=== PATIENT | female | born 1960 | race Asian ===

== ENCOUNTER 2020-11-07 22:46 | Inpatient (IN) | payer OTHER, SELFPAY ==
[~2020-11-07] VITALS: Ht 160 cm; Wt 58.2 kg
[2020-11-07] MEDS ORDERED: ACETAMINOPHEN 500 MG TABLET PO ONE (23:30)
[2020-11-07 23:37] LABS: COVID AG,FIA SOURCE NASOPHARYNGEAL
[2020-11-07 23:42] LABS: BASOPHILS % (AUTO) 0.3 % (0.0-2.0); EOSINOPHILS % (AUTO) 0 % (1.0-6.0); HEMATOCRIT 40.5 % (36-46); HEMOGLOBIN 13.5 g/dL (12.0-16.0); LYMPHOCYTES # (AUTO) 1.3 K/uL (1.0-4.8); LYMPHOCYTES % (AUTO) 24.3 % (22.0-44.0); MEAN CORPUSCULAR HEMOGLOBIN 28.4 pg (26.0-34.0); MEAN CORPUSCULAR HGB CONC 33.2 G/dL (31.0-37.0); MEAN CORPUSCULAR VOLUME 86 fL (80-100); MONOCYTES # (AUTO) 0.4 K/uL (0.1-1.0); MONOCYTES % (AUTO) 7.3 % (2.0-9.0); NEUTROPHILS # (AUTO) 3.6 K/uL (1.8-7.7); NEUTROPHILS % (AUTO) 68.1 % (40.0-70.0); PLATELET COUNT (AUTO) 167 K/uL (150-450); RED BLOOD CELL COUNT(AUTO) 4.74 MIL/uL (4.00-5.20); RED CELL DISTRIBUTION WIDTH 12.7 % (11.5-14.5)
[2020-11-07 23:56] LABS: ANION GAP 9 mmol/L (8-16); CALCIUM, TOTAL 8.1 mg/dL (8.8-10.5); CARBON DIOXIDE 27 mmol/L (22-29); CHLORIDE 98 mmol/L (98-107); CREATININE 0.92 mg/dL (0.60-1.30); GLOMERULAR FILTR. RATE CALC > 60 mL/min (>60); GLUCOSE,RANDOM 134 mg/dL (70-110); POTASSIUM 3.5 mmol/L (3.5-5.1); SODIUM SERUM 134 mmol/L (136-145); UREA NITROGEN, BLOOD 14 mg/dL (7-18)
[2020-11-08] MEDS ORDERED: 0.9% SODIUM CHLORIDE 10 ML SYRINGE IVP PRN
[2020-11-08] MEDS ORDERED: ACETAMINOPHEN 325 MG TABLET PO PRN
[2020-11-08 00:09] LABS: LACTIC ACID 1.1 mmol/L (0.4-2.0)
[2020-11-08] MEDS: OXYGEN THERAPY IH SCH ×3 (00:11→20:16)
[2020-11-08 00:15] LABS: D-DIMER 0.88 mg/L FEU (0.00-0.50)
[2020-11-08 00:21] LABS: ALANINE AMINOTRANSFERASE 42 U/L (12-78); ALBUMIN 3.4 g/dL (3.4-5.0); ALKALINE PHOSPHATASE 56 U/L (46-116); ASPARTATE AMINOTRANSFERASE 42 U/L (15-37); BILIRUBIN,TOTAL 0.6 mg/dL (0.1-1.0); CREATINE KINASE, TOTAL ONLY 85 U/L (26-192); FERRITIN 982 ng/mL (8-252); LIPASE 264 U/L (73-393); TOTAL PROTEIN, SERUM 7.8 g/dL (6.4-8.2)
[2020-11-08 00:26] LABS: B-TYPE NATRIURETIC PEPTIDE < 5 pg/mL (0-100)
[2020-11-08] MEDS ORDERED: DEXAMETHASONE SOD PHOS 4 MG/ML VIAL IVP ONE (00:30)
[2020-11-08] MEDS ORDERED: REMDESIVIR 200 MG in SODIUM CHLORIDE 0.9% 250 ML IV ONE (00:30)
[2020-11-08 00:41] LABS: INR 0.9 (0.9-1.1)
[2020-11-08 01:01] LABS: C-REACTIVE PROTEIN QUANT 2.72 mg/dL (0.00-0.30); LACTATE DEHYDROGENASE 281 U/L (81-234)
[2020-11-08] MEDS ORDERED: CHOLECALCIFEROL (VIT D3) 5,000 [125 MCG] UNITS CAPSULE PO ONE ×2 (01:15→09:00)
[2020-11-08 05:38] VITALS: BP 147/88
[2020-11-08 07:58] VITALS: BP 102/57
[2020-11-08] MEDS ORDERED: ZINC SULFATE 220 MG CAPSULE PO ONE (09:00)
[2020-11-08] MEDS ORDERED: ASCORBIC ACID 500 MG TABLET PO ONE (09:00)
[2020-11-08] MEDS: GuaiFENesin/D-METHORPHAN [SUGAR-FREE] 200-20MG/10 ML SYRUP UDCUP PO PRN (10:51)
[2020-11-08 12:50] VITALS: BP 103/64
[2020-11-08] MEDS ORDERED: SODIUM CHLORIDE 0.9% 1,000 ML IV ONE (14:00)
[2020-11-08] MEDS ORDERED: BISACODYL 10 MG RECTAL RECTAL SUPPOSITORY PR PRN (14:00)
[2020-11-08] MEDS ORDERED: MAGNESIUM HYDROXIDE SUSPENSION 30 ML UDCUP PO PRN (14:00)
[2020-11-08] MEDS ORDERED: ONDANSETRON HCL 4 MG/2 ML VIAL IVP PRN ×2 (14:00)
[2020-11-08] MEDS ORDERED: HYDROCODONE/ACETAMINOPHEN 5-325 MG TABLET PO PRN (14:00)
[2020-11-08] MEDS: ASCORBIC ACID 500 MG TABLET PO SCH ×2 (14:00→20:17)
[2020-11-08] MEDS ORDERED: MORPHINE SULFATE 2 MG/ML SYRINGE IVP PRN (14:00)
[2020-11-08] MEDS ORDERED: *CLINICAL-LEVOFLOXACIN IVPB DOSING CLINICAL ONE (14:15)
[2020-11-08] MEDS ORDERED: LEVOFLOXACIN 750 MG/D5% WATER 150 ML IV SCH (15:00)
[2020-11-08] MEDS: DEXAMETHASONE 4 MG TABLET PO SCH (15:20)
[2020-11-08] MEDS: APIXABAN 2.5 MG TABLET PO SCH ×2 (15:20→20:16)
[2020-11-08 15:49] VITALS: BP 129/80
[2020-11-08] MEDS ORDERED: HEPARIN SODIUM,PORCINE 5,000 UNITS/ML VIAL SQ SCH (16:00)
[2020-11-08] MEDS: DOCUSATE SODIUM 100 MG CAPSULE PO SCH (20:16)
[2020-11-08] MEDS: ZINC SULFATE 220 MG CAPSULE PO SCH (20:16)
[2020-11-08] MEDS: CHOLECALCIFEROL (VIT D3) 5,000 [125 MCG] UNITS CAPSULE PO SCH (20:16)
[2020-11-08 20:30] VITALS: BP 128/74
[2020-11-09 00:18] VITALS: BP 110/66
[2020-11-09] MEDS ORDERED: REMDESIVIR 100 MG in SODIUM CHLORIDE 0.9% 250 ML IV SCH (00:30)
[2020-11-09 04:42] VITALS: BP 116/67
[2020-11-09] MEDS: ASCORBIC ACID 500 MG TABLET PO SCH ×2 (08:56→20:26)
[2020-11-09] MEDS: PANTOPRAZOLE SODIUM 40 MG DR TABLET PO SCH (08:56)
[2020-11-09] MEDS: ZINC SULFATE 220 MG CAPSULE PO SCH ×2 (08:56→20:26)
[2020-11-09] MEDS: DOCUSATE SODIUM 100 MG CAPSULE PO SCH ×2 (08:56→20:27)
[2020-11-09] MEDS: APIXABAN 2.5 MG TABLET PO SCH ×2 (08:57→20:27)
[2020-11-09] MEDS: DEXAMETHASONE 4 MG TABLET PO SCH (08:57)
[2020-11-09] MEDS: CHOLECALCIFEROL (VIT D3) 5,000 [125 MCG] UNITS CAPSULE PO SCH ×2 (08:57→20:27)
[2020-11-09] MEDS: OXYGEN THERAPY IH SCH ×2 (09:02→20:26)
[2020-11-09] MEDS ORDERED: SODIUM CHLORIDE 0.9% 500 ML IV ONE (10:59)
[2020-11-09] MEDS: REMDESIVIR 100 MG in SODIUM CHLORIDE 0.9% 250 ML IV SCH (11:09)
[2020-11-09 12:32] VITALS: BP 120/75
[2020-11-09 16:32] VITALS: BP 113/66
[2020-11-09] MEDS: GuaiFENesin/D-METHORPHAN [SUGAR-FREE] 200-20MG/10 ML SYRUP UDCUP PO PRN ×2 (17:30→23:57)
[2020-11-09 19:14] VITALS: BP 113/64
[2020-11-09] MEDS: BENZONATATE 100 MG CAPSULE PO PRN (20:27)
[2020-11-09 23:29] VITALS: BP 118/67
[2020-11-09] MEDS: MELATONIN 3 MG TABLET PO PRN (23:57)
[2020-11-10 04:20] VITALS: BP 101/63
[2020-11-10 07:14] VITALS: BP 106/61
[2020-11-10 07:21] LABS: BASOPHILS % (AUTO) 0.1 % (0.0-2.0); EOSINOPHILS % (AUTO) 0 % (1.0-6.0); HEMOGLOBIN 12.2 g/dL (12.0-16.0); LYMPHOCYTES # (AUTO) 1.8 K/uL (1.0-4.8); MEAN CORPUSCULAR HEMOGLOBIN 28.5 pg (26.0-34.0); MEAN CORPUSCULAR HGB CONC 33.1 G/dL (31.0-37.0); MEAN CORPUSCULAR VOLUME 86 fL (80-100); MONOCYTES # (AUTO) 0.7 K/uL (0.1-1.0); MONOCYTES % (AUTO) 5.7 % (2.0-9.0); NEUTROPHILS # (AUTO) 10.4 K/uL (1.8-7.7); NEUTROPHILS % (AUTO) 80.2 % (40.0-70.0); PLATELET COUNT (AUTO) 247 K/uL (150-450); RED CELL DISTRIBUTION WIDTH 12.9 % (11.5-14.5)
[2020-11-10 07:42] LABS: ANION GAP 9 mmol/L (8-16); CALCIUM, TOTAL 7.9 mg/dL (8.8-10.5); CARBON DIOXIDE 27 mmol/L (22-29); CHLORIDE 104 mmol/L (98-107); CREATININE 0.72 mg/dL (0.60-1.30); GLOMERULAR FILTR. RATE CALC > 60 mL/min (>60); GLUCOSE,RANDOM 117 mg/dL (70-110); POTASSIUM 3.7 mmol/L (3.5-5.1); SODIUM SERUM 140 mmol/L (136-145); UREA NITROGEN, BLOOD 14 mg/dL (7-18)
[2020-11-10] MEDS: OXYGEN THERAPY IH SCH ×2 (09:14→21:13)
[2020-11-10] MEDS: REMDESIVIR 100 MG in SODIUM CHLORIDE 0.9% 250 ML IV SCH (09:38)
[2020-11-10] MEDS: ZINC SULFATE 220 MG CAPSULE PO SCH ×2 (09:39→20:54)
[2020-11-10] MEDS: ASCORBIC ACID 500 MG TABLET PO SCH ×2 (09:39→20:55)
[2020-11-10] MEDS: APIXABAN 2.5 MG TABLET PO SCH ×2 (09:39→20:54)
[2020-11-10] MEDS: DEXAMETHASONE 4 MG TABLET PO SCH (09:39)
[2020-11-10] MEDS: GuaiFENesin/D-METHORPHAN [SUGAR-FREE] 200-20MG/10 ML SYRUP UDCUP PO PRN (09:39)
[2020-11-10] MEDS: PANTOPRAZOLE SODIUM 40 MG DR TABLET PO SCH (09:40)
[2020-11-10] MEDS: CHOLECALCIFEROL (VIT D3) 5,000 [125 MCG] UNITS CAPSULE PO SCH ×2 (09:40→20:54)
[2020-11-10] MEDS: DOCUSATE SODIUM 100 MG CAPSULE PO SCH ×2 (09:40→20:54)
[2020-11-10] MEDS ORDERED: REMDESIVIR 100 MG in SODIUM CHLORIDE 0.9% 250 ML IV SCH (09:45)
[2020-11-10 12:01] VITALS: BP 100/57
[2020-11-10 12:16] LABS: ALANINE AMINOTRANSFERASE 31 U/L (12-78); ALBUMIN 2.7 g/dL (3.4-5.0); ALKALINE PHOSPHATASE 54 U/L (46-116); ASPARTATE AMINOTRANSFERASE 26 U/L (15-37); BILIRUBIN,TOTAL 0.3 mg/dL (0.1-1.0); C-REACTIVE PROTEIN QUANT 1.21 mg/dL (0.00-0.30); TOTAL PROTEIN, SERUM 6.6 g/dL (6.4-8.2)
[2020-11-10 16:40] VITALS: BP 104/62
[2020-11-10 19:48] VITALS: BP 118/75
[2020-11-10 23:56] VITALS: BP 117/69
[2020-11-11 04:43] VITALS: BP 129/83
[2020-11-11] MEDS: DOCUSATE SODIUM 100 MG CAPSULE PO SCH ×2 (08:16→20:31)
[2020-11-11] MEDS: ASCORBIC ACID 500 MG TABLET PO SCH ×2 (08:16→20:31)
[2020-11-11] MEDS: APIXABAN 2.5 MG TABLET PO SCH ×2 (08:16→20:31)
[2020-11-11] MEDS: PANTOPRAZOLE SODIUM 40 MG DR TABLET PO SCH (08:16)
[2020-11-11] MEDS: DEXAMETHASONE 4 MG TABLET PO SCH (08:18)
[2020-11-11] MEDS: CHOLECALCIFEROL (VIT D3) 5,000 [125 MCG] UNITS CAPSULE PO SCH ×2 (08:19→22:06)
[2020-11-11] MEDS: ZINC SULFATE 220 MG CAPSULE PO SCH ×2 (08:19→20:31)
[2020-11-11] MEDS: OXYGEN THERAPY IH SCH ×2 (08:22→20:31)
[2020-11-11 08:26] VITALS: BP 121/74
[2020-11-11 09:34] LABS: ALANINE AMINOTRANSFERASE 25 U/L (12-78); ALBUMIN 2.7 g/dL (3.4-5.0); ALKALINE PHOSPHATASE 60 U/L (46-116); ANION GAP 6 mmol/L (8-16); ASPARTATE AMINOTRANSFERASE 20 U/L (15-37); BILIRUBIN,TOTAL 0.4 mg/dL (0.1-1.0); C-REACTIVE PROTEIN QUANT 4.54 mg/dL (0.00-0.30); CARBON DIOXIDE 29 mmol/L (22-29); CHLORIDE 103 mmol/L (98-107); CREATININE 0.61 mg/dL (0.60-1.30); GLOMERULAR FILTR. RATE CALC > 60 mL/min (>60); GLUCOSE,RANDOM 118 mg/dL (70-110); POTASSIUM 3.5 mmol/L (3.5-5.1); SODIUM SERUM 138 mmol/L (136-145); TOTAL PROTEIN, SERUM 6.9 g/dL (6.4-8.2); UREA NITROGEN, BLOOD 13 mg/dL (7-18)
[2020-11-11] MEDS: REMDESIVIR 100 MG in SODIUM CHLORIDE 0.9% 250 ML IV SCH (09:46)
[2020-11-11 11:32] VITALS: BP 112/74
[2020-11-11] MEDS: BENZONATATE 100 MG CAPSULE PO PRN ×2 (11:52→17:59)
[2020-11-11] MEDS ORDERED: POTASSIUM CHLORIDE 20 MEQ ER TABLET PO PRN ×2 (16:00→16:15)
[2020-11-11] MEDS ORDERED: POTASSIUM CHL 10 MEQ/WATER 50 ML IV PRN (16:00)
[2020-11-11 16:06] VITALS: BP 120/78
[2020-11-11] MEDS: GuaiFENesin/D-METHORPHAN [SUGAR-FREE] 200-20MG/10 ML SYRUP UDCUP PO PRN ×2 (16:21→22:06)
[2020-11-11 20:10] VITALS: BP 136/64
[2020-11-11] MEDS: MELATONIN 3 MG TABLET PO PRN (22:57)
[2020-11-11 22:58] VITALS: BP 141/85
[2020-11-12 05:45] VITALS: BP 127/67
[2020-11-12] MEDS: BENZONATATE 100 MG CAPSULE PO PRN (06:28)
[2020-11-12 07:35] VITALS: BP 129/74
[2020-11-12 08:29] LABS: ALANINE AMINOTRANSFERASE 23 U/L (12-78); ALBUMIN 2.6 g/dL (3.4-5.0); ALKALINE PHOSPHATASE 60 U/L (46-116); ANION GAP 5 mmol/L (8-16); ASPARTATE AMINOTRANSFERASE 16 U/L (15-37); BILIRUBIN,TOTAL 0.5 mg/dL (0.1-1.0); C-REACTIVE PROTEIN QUANT 2.33 mg/dL (0.00-0.30); CARBON DIOXIDE 29 mmol/L (22-29); CHLORIDE 102 mmol/L (98-107); CREATININE 0.54 mg/dL (0.60-1.30); GLOMERULAR FILTR. RATE CALC > 60 mL/min (>60); GLUCOSE,RANDOM 150 mg/dL (70-110); POTASSIUM 3.9 mmol/L (3.5-5.1); SODIUM SERUM 136 mmol/L (136-145); TOTAL PROTEIN, SERUM 6.8 g/dL (6.4-8.2); UREA NITROGEN, BLOOD 12 mg/dL (7-18)
[2020-11-12] MEDS: DOCUSATE SODIUM 100 MG CAPSULE PO SCH ×2 (08:57→20:56)
[2020-11-12] MEDS: ASCORBIC ACID 500 MG TABLET PO SCH ×2 (08:57→20:56)
[2020-11-12] MEDS: OXYGEN THERAPY IH SCH ×2 (08:57→21:12)
[2020-11-12] MEDS: CHOLECALCIFEROL (VIT D3) 5,000 [125 MCG] UNITS CAPSULE PO SCH ×2 (08:57→20:56)
[2020-11-12] MEDS: ZINC SULFATE 220 MG CAPSULE PO SCH ×2 (08:57→20:56)
[2020-11-12] MEDS: DEXAMETHASONE 4 MG TABLET PO SCH (08:57)
[2020-11-12] MEDS: PANTOPRAZOLE SODIUM 40 MG DR TABLET PO SCH (08:57)
[2020-11-12] MEDS: APIXABAN 2.5 MG TABLET PO SCH ×2 (08:57→21:12)
[2020-11-12] MEDS: REMDESIVIR 100 MG in SODIUM CHLORIDE 0.9% 250 ML IV SCH (08:58)
[2020-11-12] MEDS: GuaiFENesin/D-METHORPHAN [SUGAR-FREE] 200-20MG/10 ML SYRUP UDCUP PO PRN ×2 (09:04→20:56)
[2020-11-12 11:30] VITALS: BP 103/71
[2020-11-12 16:00] VITALS: BP 98/50
[2020-11-12 19:54] VITALS: BP 135/77
[2020-11-12] MEDS: ZOLPIDEM TARTRATE 5 MG TABLET PO PRN (22:01)
[2020-11-12] MEDS: GuaiFENesin/CODEINE [SUGAR FREE] 200-20MG/10 ML SYRUP UDCUP PO PRN (23:37)
[2020-11-12 23:42] VITALS: BP 122/79
[2020-11-13 03:45] VITALS: BP 106/72
[2020-11-13 08:05] VITALS: BP 141/74
[2020-11-13] MEDS: ZINC SULFATE 220 MG CAPSULE PO SCH ×2 (08:46→20:47)
[2020-11-13] MEDS: DOCUSATE SODIUM 100 MG CAPSULE PO SCH ×2 (08:48→20:48)
[2020-11-13] MEDS: DEXAMETHASONE 4 MG TABLET PO SCH (08:48)
[2020-11-13] MEDS: APIXABAN 2.5 MG TABLET PO SCH ×2 (08:49→20:48)
[2020-11-13] MEDS: CHOLECALCIFEROL (VIT D3) 5,000 [125 MCG] UNITS CAPSULE PO SCH ×2 (08:49→20:48)
[2020-11-13] MEDS: ASCORBIC ACID 500 MG TABLET PO SCH ×2 (08:49→20:48)
[2020-11-13] MEDS: PANTOPRAZOLE SODIUM 40 MG DR TABLET PO SCH (08:51)
[2020-11-13] MEDS: OXYGEN THERAPY IH SCH ×2 (08:51→20:00)
[2020-11-13] MEDS: GuaiFENesin/CODEINE [SUGAR FREE] 200-20MG/10 ML SYRUP UDCUP PO PRN (12:56)
[2020-11-13] MEDS: ACETAMINOPHEN 325 MG TABLET PO PRN ×2 (12:57→22:38)
[2020-11-13 15:44] VITALS: BP 116/73
[2020-11-13 20:00] VITALS: BP 113/77
[2020-11-13] MEDS: GuaiFENesin/D-METHORPHAN [SUGAR-FREE] 200-20MG/10 ML SYRUP UDCUP PO PRN (20:53)
[2020-11-13] MEDS: ZOLPIDEM TARTRATE 5 MG TABLET PO PRN (22:38)
[2020-11-14 04:30] VITALS: BP 115/72
[2020-11-14] MEDS: OXYGEN THERAPY IH SCH (08:00)
[2020-11-14 08:11] VITALS: BP 125/60
[2020-11-14 08:19] LABS: BASOPHILS % (AUTO) 0.4 % (0.0-2.0); EOSINOPHILS % (AUTO) 0.9 % (1.0-6.0); HEMOGLOBIN 13.1 g/dL (12.0-16.0); LYMPHOCYTES # (AUTO) 3.1 K/uL (1.0-4.8); MEAN CORPUSCULAR HEMOGLOBIN 28.7 pg (26.0-34.0); MEAN CORPUSCULAR HGB CONC 33.6 G/dL (31.0-37.0); MEAN CORPUSCULAR VOLUME 86 fL (80-100); MONOCYTES % (AUTO) 10.8 % (2.0-9.0); NEUTROPHILS # (AUTO) 5.4 K/uL (1.8-7.7); NEUTROPHILS % (AUTO) 55.9 % (40.0-70.0); PLATELET COUNT (AUTO) 526 K/uL (150-450); RED BLOOD CELL COUNT(AUTO) 4.56 MIL/uL (4.00-5.20); RED CELL DISTRIBUTION WIDTH 12.9 % (11.5-14.5)
[2020-11-14] MEDS: DOCUSATE SODIUM 100 MG CAPSULE PO SCH (08:22)
[2020-11-14] MEDS: ZINC SULFATE 220 MG CAPSULE PO SCH (08:22)
[2020-11-14] MEDS: PANTOPRAZOLE SODIUM 40 MG DR TABLET PO SCH (08:22)
[2020-11-14] MEDS: APIXABAN 2.5 MG TABLET PO SCH (08:23)
[2020-11-14] MEDS: ASCORBIC ACID 500 MG TABLET PO SCH (08:23)
[2020-11-14] MEDS: CHOLECALCIFEROL (VIT D3) 5,000 [125 MCG] UNITS CAPSULE PO SCH (08:23)
[2020-11-14] MEDS: DEXAMETHASONE 4 MG TABLET PO SCH (08:23)
[2020-11-14 08:36] LABS: ALANINE AMINOTRANSFERASE 24 U/L (12-78); ALBUMIN 2.9 g/dL (3.4-5.0); ALKALINE PHOSPHATASE 57 U/L (46-116); ANION GAP 10 mmol/L (8-16); ASPARTATE AMINOTRANSFERASE 12 U/L (15-37); BILIRUBIN,TOTAL 0.5 mg/dL (0.1-1.0); CALCIUM, TOTAL 8.1 mg/dL (8.8-10.5); CARBON DIOXIDE 30 mmol/L (22-29); CHLORIDE 101 mmol/L (98-107); GLOMERULAR FILTR. RATE CALC > 60 mL/min (>60); GLUCOSE,RANDOM 123 mg/dL (70-110); POTASSIUM 3.9 mmol/L (3.5-5.1); SODIUM SERUM 141 mmol/L (136-145); TOTAL PROTEIN, SERUM 6.9 g/dL (6.4-8.2); UREA NITROGEN, BLOOD 14 mg/dL (7-18)
[2020-11-14] MEDS ORDERED: ASCO500 PO (11:05)
[2020-11-14] MEDS ORDERED: ZINC220C14 PO (11:05)
[2020-11-14] MEDS ORDERED: ACET-2247 PO ×2 (11:06)
[2020-11-14 12:45] VITALS: BP 117/84
== END 2020-11-14 13:25 | disposition home or self-care (01) | DRG 871 ==
LOC: EMS 22:49 → 5N 11-08 04:53 → 6N 11-12 18:50
PROVIDERS: ADMIT Internal Medicine; ATTEND Internal Medicine
PROC: XW033E5 Introduction of Remdesivir Anti-infective into Peripheral Vein, Percutaneous Approach, New Technology Group 5 (ICD-10-PCS; principal; 2020-11-08)
DX: A41.9 Sepsis, unspecified organism (principal); U07.1 COVID-19; R09.02 Hypoxemia; R74.02 Elevation of levels of lactic acid dehydrogenase [LDH]; R79.82 Elevated C-reactive protein (CRP); I10 Essential (primary) hypertension; Z79.01 Long term (current) use of anticoagulants
CPT/HCPCS: 71045; 80048; 80053; 80076; 82550; 82728; 83605; 83615; 83690; 83880; 84145; 84484; 85025; 85379; 85610; 85730; 86140; 87040; 93005; 99291; G0238; J1100; J1956; J2270; J7030; J7040; J7050; J8540; Q9967; 36415-L1; 36415-TC; U0003